=== PATIENT | female | born 1995 | race Caucasian/White ===

== ENCOUNTER 2016-11-06 13:29 | Outpatient (CLI) | payer MEDICAID ==
--- NOTE | 2016-11-06 14:00 | L&D Flow Sheet ---
LD Flowsheet Datetime Report Generated by CPN: 11/06/2016 14:00 Datetime: 11/06/2016 13:56 Pain Pain Scale: 0 (Nitza Girish, RN) Pain Presence: None/Denies (Nitza Girish, RN) Pain Type: N/A (Nitza Girish, RN) Vaginal Exam Vaginal Bleeding: None (Nitza Girish, RN) Maternal Assessment Level of Consciousness: Fully Conscious (Nitza Girish, RN) DTR's/Clonus: DTRs 2+; No Clonus (Nitza Girish, RN) Headache: Denies (Nitaz Girish, RN) Breath Sounds, Left: Clear and Equal (Nitza Girish, RN) Breath Sounds, Right: Clear and Equal (Nitza Girish, RN) Nausea/Vomiting: Denies (Nitza Girish, RN) RUQ Epigastric Pain: Denies (Nitza Girish, RN) Communication LaborFlag: OB Triage (QS system process) Datetime: 11/06/2016 13:55 Vital Signs Stage of : OB Triage (Nitza Girish, RN) Datetime: 11/06/2016 13:49 NBP Sys/Cheryl/Mean (mmHg): 114 (QS system process) : 61 (QS system process) : 81 (QS system process) Pulse: 91 (QS system process) Communication LaborFlag: Labor (QS system process)
[2016-11-06 14:29] LABS: APPEARANCE,URINE SLIGHTLY-CLOUDY; BILIRUBIN,URINE NEGATIVE (NEGATIVE); GLUCOSE, URINE NEGATIVE (NEGATIVE); KETONES,URINE NEGATIVE (NEGATIVE); LEUKOCYTE ESTERASE,URINE MODERATE (NEGATIVE); NITRITE,URINE NEGATIVE (NEGATIVE); PROTEIN,URINE NEGATIVE (NEGATIVE); URINE SPECIFIC GRAVITY 1.011; UROBILINOGEN,URINE NEGATIVE mg/dL (<2.0)
[2016-11-06 14:52] LABS: URINE BARBITURATES SCREEN NEGATIVE; URINE METHADONE SCREEN NEGATIVE; URINE OPIATES LOW NEGATIVE; URINE PHENCYCLIDINE SCREEN NEGATIVE
== END 2016-11-06 14:45 | disposition home or self-care (01) ==
LOC: LC 13:29
PROVIDERS: ATTEND Student in an Organized Health Care Education/Training Program
PROC: 4A1HXCZ Monitoring of Products of Conception, Cardiac Rate, External Approach (ICD-10-PCS; principal; 2016-11-06)
DX: O48.0 Post-term pregnancy (principal); Z3A.40 40 weeks gestation of pregnancy
CPT/HCPCS: 59025; 80307; 81005

== ENCOUNTER 2016-11-15 07:16 | Inpatient (IN) | payer MEDICAID ==
--- NOTE | 2016-11-15 08:00 | L&D Flow Sheet ---
LD Flowsheet Datetime Report Generated by CPN: 11/15/2016 08:00 Datetime: 11/15/2016 07:55 Vital Signs NBP Sys/Cheryl/Mean (mmHg): 120 (QS system process) : 81 (QS system process) : 90 (QS system process) Pulse: 115 (QS system process) Communication LaborFlag: OB Triage (QS system process)
[2016-11-15] MEDS ORDERED: RINGERS SOLUTION,LACTATED 1,000 ML IV ONE (08:18)
[2016-11-15] MEDS ORDERED: FENTANYL CITRATE INJ/PF 100 MCG/2 ML AMPUL ONE (09:23)
[2016-11-15] MEDS ORDERED: EPHEDRINE SULFATE INJ 50 MG/1 ML AMPULE ONE (09:23)
[2016-11-15] MEDS ORDERED: PHENYLEPHRINE HCL INJ/PF 10 MG/1 ML SDV ONE (09:23)
[2016-11-15] MEDS ORDERED: FENTANYL/BUPIVACAINE/NS/PF 200 MCG/100 ML RTUINJ EPI ONE (09:24)
[2016-11-15] MEDS ORDERED: BUPIVACAINE HCL 0.25 % INJ/PF (2.5 MG/1 ML) 30 ML VIAL ONE (09:24)
[2016-11-15 09:27] LABS: ABSOLUTE LYMPHOCYTES (AUTO) 1.5 10^3/uL (0.5-4.7); ABSOLUTE NEUT (AUTO) 10.8 10^3/uL (1.7-8.2); BASOPHILS % (AUTO) 0.2 % (0-2); HEMATOCRIT 37.5 % (36.0-47.0); HEMOGLOBIN 12.2 g/dL (12.0-15.5); HGB HCT DIFFERENCE -0.9; LYMPHOCYTES % (AUTO) 11.4 % (13-45); MEAN CORPUSCULAR HGB CONC 32.5 g/dL (32.0-36.0); MEAN CORPUSCULAR VOLUME 83 fl (80-97); MONOCYTES % (AUTO) 7.3 % (3-13); RED BLOOD COUNT 4.52 10^6/uL (3.72-5.28); RED CELL DISTRIBUTION WIDTH 16.6 % (11.5-14.0); SEGMENTED NEUTROPHILS % (AUTO) 81.1 % (42-78); WHITE BLOOD COUNT 13.4 10^3/uL (4.0-10.5)
--- NOTE | 2016-11-15 10:00 | L&D Flow Sheet ---
LD Flowsheet Datetime Report Generated by CPN: 11/15/2016 10:00 Datetime: 11/15/2016 09:59 NBP Sys/Cheryl/Mean (mmHg): 123 (QS system process) : 76 (QS system process) : 96 (QS system process) LaborFlag: OB Triage (QS system process) Datetime: 11/15/2016 09:58 Pulse: 111 (QS system process) SpO2 (%): 95 (QS system process) LaborFlag: OB Triage (QS system process) Datetime: 11/15/2016 09:55 Procedure Verify: Correct Patient Identity; Agreement on Procedure to be Done; Correct Patient Position; Addressed Need to Administer Antibiotics or Fluids for Irrigation (Macario Olivas RN) Epidural Positioning: Sitting (Macario Olivas, RN) Datetime: 11/15/2016 09:54 Patient Care Comments: Anesthesiologist in room to administer epidural. RN at bedside. (Macario Olivas, RN) Datetime: 11/15/2016 09:47 NBP Sys/Cheryl/Mean (mmHg): 137 (QS system process) : 82 (QS system process) : 100 (QS system process) Pulse: 90 (QS system process) LaborFlag: OB Triage (QS system process) Datetime: 11/15/2016 09:30 Monitor Mode: External (Macario Brendon, RN) Duration (sec): 1-2 (Macario Brendon, RN) Datetime: 11/15/2016 09:29 Duration (sec): 40-90 (Macario Olivas, RN) Monitor Mode: External US (Macario Brendon, RN) FHR Baseline Rate : 145 (Macario Brendon, RN) FHR Baseline Changes: No Baseline Change (Macario Brendon, RN) Variability: Moderate 6-25 bpm (Macario Brendon, RN) Accelerations: 15X15 (Macario Brendon, RN) Decelerations: None (Macario Brendon, RN) Datetime: 11/15/2016 08:59 Contraction Comments: Patient uncooperative, unable to assess (Macario Brendon, RN) Comments: RN at bedside adjusting monitor, FHR appears to be at 145 (Macario Brendon, RN) Datetime: 11/15/2016 08:29 Resting Tone (Palpate): Relaxed (Macario Brendon, RN) Contraction Comments: Patient uncooperative, unable to assess (Macario Brendon, RN) Monitor Mode: External US (Macario Brendon, RN) FHR Baseline Rate : 145 (Macario Brendon, RN) Variability: Moderate 6-25 bpm (Macario Brendon, RN) Accelerations: 15X15 (Macario Brendon, RN) Decelerations: None (Macario Brendon, RN) Datetime: 11/15/2016 08:20 Pain Scale: 5 (Macario Olivas RN) Pain Presence: Intermittent (Macario Olivas RN) Pain Type: Contraction (Macario Olivas RN) Pain Location: Abdomen (Annotations: [place] ) (Macario Olivas RN) Pain Goal: 1 (Macario Olivas RN) Pain Coping: Talking Through Contractions; Breathing Through Contractions (Macario Olivas RN) Membrane Status: Intact (Macario Olivas RN) Vaginal Bleeding: Scant (Macario Olivas RN) Level of Consciousness: Fully Conscious (Macario Olivas RN) Headache: Denies (Macario Olivas RN) Breath Sounds, Left: Clear and Equal (Macario Olivas RN) Breath Sounds, Right: Clear and Equal (Macario Olivas RN) Nausea/Vomiting: Hx of Nausea/Vomiting (Annotations: Vomiting began this morning) (Macario Olivas RN) RUQ Epigastric Pain: Denies (Macario Olivas RN) LaborFlag: OB Triage (QS system process) Datetime: 11/15/2016 08:12 IV/Blood Work: IV Started; IV Bolus Started (Macario Olivas RN) Patient Position/Activity: Left Tilt; Low Fowlers (Macario Olivas RN)
[2016-11-15 10:56] LABS: APPEARANCE,URINE CLOUDY; BILIRUBIN,URINE NEGATIVE (NEGATIVE); GLUCOSE, URINE NEGATIVE (NEGATIVE); KETONES,URINE 20 mg/dL (NEGATIVE); LEUKOCYTE ESTERASE,URINE LARGE (NEGATIVE); NITRITE,URINE NEGATIVE (NEGATIVE); PROTEIN,URINE NEGATIVE (NEGATIVE); URINE SPECIFIC GRAVITY 1.008; UROBILINOGEN,URINE NEGATIVE mg/dL (<2.0)
[2016-11-15 11:15] LABS: URINE BARBITURATES SCREEN NEGATIVE; URINE METHADONE SCREEN NEGATIVE; URINE OPIATES LOW NEGATIVE; URINE PHENCYCLIDINE SCREEN NEGATIVE
--- NOTE | 2016-11-15 12:00 | L&D Flow Sheet ---
LD Flowsheet Datetime Report Generated by CPN: 11/15/2016 12:00 Datetime: 11/15/2016 11:58 NBP Sys/Cheryl/Mean (mmHg): 106 (QS system process) : 55 (QS system process) : 72 (QS system process) Pulse: 114 (QS system process) LaborFlag: OB Triage (QS system process) Datetime: 11/15/2016 11:57 Patient Position/Activity: Left Lateral; Peanut Ball (Macario Olivas RN) Patient Care Comments: Patient switched from right to left side on peanut ball. (Macario Olivas, RN) Datetime: 11/15/2016 11:40 NBP Sys/Cheryl/Mean (mmHg): 129 (QS system process) : 75 (QS system process) : 95 (QS system process) Pulse: 112 (QS system process) Respirations: 16 (Erendira Bellavance, RNC) LaborFlag: OB Triage (QS system process) Datetime: 11/15/2016 11:30 Monitor Mode: External (Erendira Bellavance, RNC) Monitor Interventions for UA: [place] Adjusted (Erendira Bellavance, RNC) Frequency (min): 4-5 (Erendira Bellavance, RNC) Quality: Moderate (Erendira Bellavance, RNC) Duration (sec): 50-60 (Erendira Bellavance, RNC) Duration Criteria: Less than Two 120 Second Contractions (Erendira Bellavance, RNC) Pattern: Normal: <= 5 Contractions in 10 Minutes (Erendira Bellavance, RNC) Resting Tone (Palpate): Relaxed (Erendira Bellavance, RNC) Monitor Mode: External US (Erendira Bellavance, RNC) Monitor Interventions for FHR: Ultrasound Adjusted (Erendira Bellavance, RNC) FHR Baseline Rate : 145 (Erendira Bellavance, RNC) Variability: Moderate 6-25 bpm (Erendira Bellavance, RNC) Accelerations: 15X15 (Erendira Bellavance, RNC) Decelerations: Variable (Erendira Bellavance, RNC) Pain Scale: 0 (Erendira Bellavance, RNC) Level of Consciousness: Fully Conscious (Erendira Bellavance, RNC) IV/Blood Work: IV Infusing per Order (Erendira Bellavance, RNC) Patient Position/Activity: Peanut Ball; Right Extreme (Erendira Bellavance, RNC) Comfort Measures: Family Support (Erendira Bellavance, RNC) LaborFlag: OB Triage (QS system process) Datetime: 11/15/2016 11:24 NBP Sys/Cheryl/Mean (mmHg): 121 (QS system process) : 78 (QS system process) : 92 (QS system process) Pulse: 123 (QS system process) Respirations: 16 (Erendira Bellavance, RNC) LaborFlag: OB Triage (QS system process) Datetime: 11/15/2016 11:18 Pain Scale: 0 (Macario Olivas, RN) Pain Presence: None/Denies (Macario Olivas, RN) Pain Type: N/A (Macario Olivas, RN) Pain Goal: 0 (Macario Olivas, RN) Pain Relief Measures: Epidural Given (Macario Olivas, RN) LaborFlag: OB Triage (QS system process) Datetime: 11/15/2016 11:10 NBP Sys/Cheryl/Mean (mmHg): 130 (QS system process) : 81 (QS system process) : 98 (QS system process) Pulse: 116 (QS system process) Temperature (F): 98.0 (Macario Olivas, RN) Temperature (C): 36.7 (QS system process) Temperature Route: Oral (Macario Brendon, JULIETA) LaborFlag: OB Triage (QS system process) Datetime: 11/15/2016 11:06 Membrane Status: Ruptured (Macario Olivas RN) Membranes Rupture Method: Artificial (Macario Olivas RN) Amniotic Fluid Color: Clear (Macario Olivas RN) Amniotic Fluid Amount: Moderate (Macario Olivas RN) Amniotic Fluid Odor: Normal (Macario Olivas RN) Datetime: 11/15/2016 10:59 Dilatation (cm): 7.0 (Macario Olivas RN) Effacement (%): 100 (Macario Olivas RN) Station: -1 (Macario Olivas RN) Exam by: Macario Olivas RN (Macario Olivas RN) Cervix, Consistency: Soft (Macario Olivas RN) Cervix, Position: Anterior (Macario Olivas RN) Datetime: 11/15/2016 10:54 NBP Sys/Cheryl/Mean (mmHg): 116 (QS system process) : 77 (QS system process) : 90 (QS system process) Pulse: 117 (QS system process) LaborFlag: OB Triage (QS system process) Datetime: 11/15/2016 10:39 NBP Sys/Cheryl/Mean (mmHg): 128 (QS system process) : 79 (QS system process) : 99 (QS system process) Pulse: 126 (QS system process) LaborFlag: OB Triage (QS system process) Datetime: 11/15/2016 10:38 NBP Sys/Cheryl/Mean (mmHg): 127 (QS system process) : 73 (QS system process) : 92 (QS system process) Pulse: 130 (QS system process) LaborFlag: OB Triage (QS system process) Datetime: 11/15/2016 10:37 NBP Sys/Cheryl/Mean (mmHg): 131 (QS system process) : 71 (QS system process) : 96 (QS system process) Pulse: 129 (QS system process) LaborFlag: OB Triage (QS system process) Datetime: 11/15/2016 10:33 NBP Sys/Cheryl/Mean (mmHg): 153 (QS system process) : 94 (QS system process) : 116 (QS system process) Pulse: 125 (QS system process) LaborFlag: OB Triage (QS system process) Datetime: 11/15/2016 10:30 NBP Sys/Cheryl/Mean (mmHg): 119 (QS system process) : 69 (QS system process) : 89 (QS system process) Pulse: 112 (QS system process) Pulse: 105 (QS system process) SpO2 (%): 93 (QS system process) LaborFlag: OB Triage (QS system process) Datetime: 11/15/2016 10:29 NBP Sys/Cheryl/Mean (mmHg): 109 (QS system process) NBP Sys/Cheryl/Mean (mmHg): 101 (QS system process) : 65 (QS system process) : 58 (QS system process) : 80 (QS system process) : 69 (QS system process) Pulse: 100 (QS system process) Pulse: 106 (QS system process) Pulse: 93 (QS system process) SpO2 (%): 95 (QS system process) Monitor Mode: External; Palpation (Macario Olivas RN) Frequency (min): 2-3 (Macario Olivas RN) Quality: Mild (Macario Olivas RN) Duration (sec): 40-90 (Macario Olivas RN) Resting Tone (Palpate): Relaxed (Macario Olivas RN) Monitor Mode: External US (Macario Olivas RN) FHR Baseline Rate : 135 (Macario Olivas RN) Variability: Moderate 6-25 bpm (Macario Olivas RN) Decelerations: Late (Macario Olivas RN) Actions for Decelerations: Side to Side; IV Bolus; Blood Pressure; Other (Macario Olivas RN) Comments: Ephedrine Given (Macario Olivas RN) Medication Comments: Ephedrin given 5mg IV push (Macario Olivas RN) LaborFlag: OB Triage (QS system process) Datetime: 11/15/2016 10:27 NBP Sys/Cheryl/Mean (mmHg): 108 (QS system process) : 56 (QS system process) : 79 (QS system process) Pulse: 85 (QS system process) LaborFlag: OB Triage (QS system process) Datetime: 11/15/2016 10:26 NBP Sys/Cheryl/Mean (mmHg): 107 (QS system process) : 52 (QS system process) : 75 (QS system process) Pulse: 89 (QS system process) LaborFlag: OB Triage (QS system process) Datetime: 11/15/2016 10:25 NBP Sys/Cheryl/Mean (mmHg): 111 (QS system process) : 56 (QS system process) : 81 (QS system process) Pulse: 91 (QS system process) LaborFlag: OB Triage (QS system process) Datetime: 11/15/2016 10:24 NBP Sys/Cheryl/Mean (mmHg): 107 (QS system process) : 55 (QS system process) : 78 (QS system process) Pulse: 89 (QS system process) Pulse: 107 (QS system process) SpO2 (%): 99 (QS system process) LaborFlag: OB Triage (QS system process) Datetime: 11/15/2016 10:23 NBP Sys/Cheryl/Mean (mmHg): 110 (QS system process) : 56 (QS system process) : 78 (QS system process) Pulse: 98 (QS system process) LaborFlag: OB Triage (QS system process) Datetime: 11/15/2016 10:22 NBP Sys/Cheryl/Mean (mmHg): 109 (QS system process) : 57 (QS system process) : 79 (QS system process) Pulse: 87 (QS system process) LaborFlag: OB Triage (QS system process) Datetime: 11/15/2016 10:21 NBP Sys/Cheryl/Mean (mmHg): 108 (QS system process) : 64 (QS system process) : 81 (QS system process) Pulse: 100 (QS system process) LaborFlag: OB Triage (QS system process) Datetime: 11/15/2016 10:20 NBP Sys/Cheryl/Mean (mmHg): 106 (QS system process) : 62 (QS system process) : 80 (QS system process) Pulse: 81 (QS system process) LaborFlag: OB Triage (QS system process) Datetime: 11/15/2016 10:19 NBP Sys/Cheryl/Mean (mmHg): 102 (QS system process) : 59 (QS system process) : 77 (QS system process) Pulse: 93 (QS system process) Pulse: 96 (QS system process) SpO2 (%): 97 (QS system process) LaborFlag: OB Triage (QS system process) Datetime: 11/15/2016 10:18 NBP Sys/Cheryl/Mean (mmHg): 104 (QS system process) : 56 (QS system process) : 74 (QS system process) Pulse: 81 (QS system process) LaborFlag: OB Triage (QS system process) Datetime: 11/15/2016 10:17 NBP Sys/Cheryl/Mean (mmHg): 109 (QS system process) : 62 (QS system process) : 79 (QS system process) Pulse: 100 (QS system process) Pulse: 96 (QS system process) SpO2 (%): 94 (QS system process) LaborFlag: OB Triage (QS system process) Datetime: 11/15/2016 10:16 NBP Sys/Cheryl/Mean (mmHg): 117 (QS system process) : 59 (QS system process) : 83 (QS system process) Pulse: 85 (QS system process) LaborFlag: OB Triage (QS system process) Datetime: 11/15/2016 10:15 NBP Sys/Cheryl/Mean (mmHg): 123 (QS system process) : 59 (QS system process) : 79 (QS system process) Pulse: 104 (QS system process) LaborFlag: OB Triage (QS system process) Datetime: 11/15/2016 10:14 NBP Sys/Cheryl/Mean (mmHg): 108 (QS system process) : 56 (QS system process) : 78 (QS system process) Pulse: 106 (QS system process) Pulse: 99 (QS system process) SpO2 (%): 96 (QS system process) LaborFlag: OB Triage (QS system process) Datetime: 11/15/2016 10:13 NBP Sys/Cheryl/Mean (mmHg): 115 (QS system process) : 64 (QS system process) : 84 (QS system process) Pulse: 96 (QS system process) Anesthesia Plans: Epidural (Macario Olivas RN) Epidural Procedure Other: Pump Started (Macario Olivas RN) Anesthesia Comments: Patient laying down with RN at bedside (Macario Olivas RN) LaborFlag: OB Triage (QS system process) Datetime: 11/15/2016 10:12 NBP Sys/Cheryl/Mean (mmHg): 116 (QS system process) : 69 (QS system process) : 87 (QS system process) Pulse: 108 (QS system process) Pulse: 111 (QS system process) SpO2 (%): 92 (QS system process) I/O Interventions: Carl Cath Inserted (Macario Olivas RN) LaborFlag: OB Triage (QS system process) Datetime: 11/15/2016 10:09 NBP Sys/Cheryl/Mean (mmHg): 120 (QS system process) : 61 (QS system process) : 80 (QS system process) Pulse: 107 (QS system process) Pulse: 111 (QS system process) SpO2 (%): 98 (QS system process) LaborFlag: OB Triage (QS system process) Datetime: 11/15/2016 10:08 NBP Sys/Cheryl/Mean (mmHg): 121 (QS system process) : 75 (QS system process) : 90 (QS system process) Pulse: 104 (QS system process) LaborFlag: OB Triage (QS system process) Datetime: 11/15/2016 10:07 NBP Sys/Cheryl/Mean (mmHg): 126 (QS system process) : 73 (QS system process) : 95 (QS system process) Pulse: 100 (QS system process) Epidural Procedure: Loading Dose (Macario Olivas RN) LaborFlag: OB Triage (QS system process) Datetime: 11/15/2016 10:06 NBP Sys/Cheryl/Mean (mmHg): 124 (QS system process) : 83 (QS system process) : 95 (QS system process) Pulse: 113 (QS system process) Anesthesia Plans: Epidural (Macario Olivas RN) Epidural Procedure: Test Dose (Macario Olivas RN) LaborFlag: OB Triage (QS system process) Datetime: 11/15/2016 10:05 NBP Sys/Cheryl/Mean (mmHg): 129 (QS system process) : 81 (QS system process) : 96 (QS system process) Pulse: 123 (QS system process) LaborFlag: OB Triage (QS system process) Datetime: 11/15/2016 10:04 NBP Sys/Cheryl/Mean (mmHg): 126 (QS system process) : 93 (QS system process) : 106 (QS system process) Pulse: 118 (QS system process) SpO2 (%): 99 (QS system process) LaborFlag: OB Triage (QS system process) Datetime: 11/15/2016 10:03 NBP Sys/Cheryl/Mean (mmHg): 123 (QS system process) : 78 (QS system process) : 96 (QS system process) Pulse: 113 (QS system process) LaborFlag: OB Triage (QS system process) Datetime: 11/15/2016 10:02 NBP Sys/Cheryl/Mean (mmHg): 129 (QS system process) : 89 (QS system process) : 103 (QS system process) Pulse: 102 (QS system process) LaborFlag: OB Triage (QS system process) Datetime: 11/15/2016 10:01 NBP Sys/Cheryl/Mean (mmHg): 124 (QS system process) : 88 (QS system process) : 102 (QS system process) Pulse: 123 (QS system process) LaborFlag: OB Triage (QS system process) Datetime: 11/15/2016 10:00 NBP Sys/Cheryl/Mean (mmHg): 121 (QS system process) : 89 (QS system process) : 102 (QS system process) Pulse: 122 (QS system process) Monitor Mode: External US (Macario Olivas RN) FHR Baseline Rate : 140 (Macario Olivas RN) FHR Baseline Changes: No Baseline Change (Macario Olivas RN) Variability: Moderate 6-25 bpm (Macario Olivas RN) Accelerations: 15X15 (Macario Olivas RN) Decelerations: None (Macario Olivas RN) LaborFlag: OB Triage (QS system process)
[2016-11-15] MEDS ORDERED: OXYTOCIN/NORMAL SALINE 20 UNIT/1,000 ML RTUINJ ONE ×2 (12:52→16:44)
--- NOTE | 2016-11-15 14:00 | L&D Flow Sheet ---
LD Flowsheet Datetime Report Generated by CPN: 11/15/2016 14:00 Datetime: 11/15/2016 13:59 Pulse: 126 (QS system process) SpO2 (%): 97 (QS system process) LaborFlag: OB Triage (QS system process) Datetime: 11/15/2016 13:54 NBP Sys/Cheryl/Mean (mmHg): 128 (QS system process) : 80 (QS system process) : 99 (QS system process) Pulse: 130 (QS system process) Pulse: 127 (QS system process) SpO2 (%): 97 (QS system process) LaborFlag: OB Triage (QS system process) Datetime: 11/15/2016 13:52 Pitocin (milliunit): Pitocin Increased to (milliunits) @ 8 ([facility], RN) Datetime: 11/15/2016 13:49 Pulse: 127 (QS system process) SpO2 (%): 97 (QS system process) LaborFlag: OB Triage (QS system process) Datetime: 11/15/2016 13:45 FHR Baseline Rate : 145 (Macario Brendon, RN) Variability: Moderate 6-25 bpm (Macario Brendon, RN) Accelerations: 15X15 (Macario Brendon, RN) Decelerations: None (Macario Brendon, RN) Datetime: 11/15/2016 13:44 Pulse: 131 (QS system process) SpO2 (%): 97 (QS system process) LaborFlag: OB Triage (QS system process) Datetime: 11/15/2016 13:40 Patient Position/Activity: Left Lateral (Macario Brendon, RN) Datetime: 11/15/2016 13:39 NBP Sys/Cheryl/Mean (mmHg): 124 (QS system process) : 84 (QS system process) : 98 (QS system process) Pulse: 136 (QS system process) SpO2 (%): 96 (QS system process) LaborFlag: OB Triage (QS system process) Datetime: 11/15/2016 13:33 Pulse: 141 (QS system process) SpO2 (%): 98 (QS system process) Pitocin (milliunit): Pitocin Increased to (milliunits) @ 6 (Macario Olivas RN) LaborFlag: OB Triage (QS system process) Datetime: 11/15/2016 13:29 Monitor Mode: External (Macario Olivas RN) Frequency (min): 3 (Macario Olivas RN) Quality: Mild (Macario Olivas RN) Duration (sec): 90-110 (Macario Olivas RN) Monitor Mode: External US (Macario Olivas RN) FHR Baseline Rate : 145 (Macario Oroscoford, RN) Variability: Moderate 6-25 bpm (Macario Brendon, RN) Accelerations: 15X15 (Macario Brendon, RN) Decelerations: None (Macario Olivas, RN) Datetime: 11/15/2016 13:28 Pulse: 150 (QS system process) SpO2 (%): 98 (QS system process) LaborFlag: OB Triage (QS system process) Datetime: 11/15/2016 13:26 NBP Sys/[place]yrl/Mean (mmHg): 119 (QS system process) : 80 (QS system process) : 94 (QS system process) Pulse: 148 (QS system process) LaborFlag: OB Triage (QS system process) Datetime: 11/15/2016 13:24 Patient Care Comments: 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 notified of patinets pulse rate being elavated (Macario Brendon, RN) Datetime: 11/15/2016 13:23 Pulse: 147 (QS system process) SpO2 (%): 99 (QS system process) LaborFlag: OB Triage (QS system process) Datetime: 11/15/2016 13:18 Pulse: 132 (QS system process) SpO2 (%): 99 (QS system process) LaborFlag: OB Triage (QS system process) Datetime: 11/15/2016 13:15 Temperature (F): 98.5 (Macario Olivas, RN) Temperature (C): 36.9 (QS system process) Temperature Route: Oral (Macario Olivas, RN) LaborFlag: OB Triage (QS system process) Datetime: 11/15/2016 13:14 Monitor Mode: External (Macario Olivas, RN) Frequency (min): 1-4 (Macario Olivas, RN) Quality: Mild (Macario Olivas, RN) Duration (sec): 40-100 (Macario Olivas, RN) Resting Tone (Palpate): Relaxed (Macario Olivas, RN) Monitor Mode: External US (Macario Olivas, RN) FHR Baseline Rate : 150 (Macario Olivas, RN) Variability: Moderate 6-25 bpm (Macario Brendon, RN) Accelerations: 15X15 (Macario Brendon, RN) Decelerations: None (Macario Brendon, RN) Pitocin (milliunit): Pitocin Increased to (milliunits) @ 4 (Macario Brendon, RN) Datetime: 11/15/2016 13:09 NBP Sys/Cheryl/Mean (mmHg): 110 (QS system process) : 81 (QS system process) : 92 (QS system process) Pulse: 157 (QS system process) LaborFlag: OB Triage (QS system process) Datetime: 11/15/2016 13:00 Frequency (min): 4-7 (Macario Brendon, RN) Duration (sec): 80-120 (Macario Brendon, RN) Monitor Mode: External US (Macario Olivas, RN) FHR Baseline Rate : 150 (Macario Brendon, RN) Variability: Moderate 6-25 bpm (Macario Brendon, RN) Accelerations: None (Macario Brendon, RN) Decelerations: None (Macario Brendon, RN) Datetime: 11/15/2016 12:57 Pitocin (milliunit): Pitocin Started (milliunits) @ 2 (Macario Olivas, RN) Datetime: 11/15/2016 12:54 NBP Sys/Cheryl/Mean (mmHg): 120 (QS system process) : 86 (QS system process) : 99 (QS system process) Pulse: 136 (QS system process) LaborFlag: OB Triage (QS system process) Datetime: 11/15/2016 12:45 Monitor Mode: External (Macario Olivas, RN) Frequency (min): x1 (Macario Olivas, RN) Duration (sec): 70 (Macario Brendon, RN) Monitor Mode: External US (Macario Olivas, RN) FHR Baseline Rate : 150 (Macario Olivas, RN) Variability: Moderate 6-25 bpm (Macario Olivas, RN) Decelerations: None (Macario Brendon, RN) Datetime: 11/15/2016 12:44 Dilatation (cm): 7.0 (Macario Olivas RN) Effacement (%): 90 (Macario Olivas RN) Station: 0 (Macario Olivas RN) Exam by: Macario Olivas RN (Macario Olivas RN) Vaginal Bleeding: None (Macario Olivas RN) Cervix, Position: Anterior (Macario Olivas RN) Lie 'A': Longitudinal (Macario Olivas RN) Patient Position/Activity: High Fowlers (Macario Olivas RN) I/O Interventions: Clear Liquids Given (Macario Olivas RN) Datetime: 11/15/2016 12:39 Patient Position/Activity: Right Lateral; Peanut Ball (Macario Olivas RN) Datetime: 11/15/2016 12:29 Monitor Mode: External (Macario Brendon, RN) Frequency (min): 4-6 (Macario Brendon, RN) Duration (sec): 70-110 (Macario Brendon, RN) Monitor Mode: External US (Macario Brendon, RN) FHR Baseline Rate : 150 (Macario Brendon, RN) Variability: Moderate 6-25 bpm (Macario Brendon, RN) Decelerations: None (Macario Brendon, RN) Datetime: 11/15/2016 12:14 Frequency (min): 2-4 (Macario Brendon, RN) Duration (sec): 70-140 (Macario Brendon, RN) Datetime: 11/15/2016 12:11 NBP Sys/Cheryl/Mean (mmHg): 104 (QS system process) : 58 (QS system process) : 73 (QS system process) Pulse: 109 (QS system process) LaborFlag: OB Triage (QS system process)
--- NOTE | 2016-11-15 16:00 | L&D Flow Sheet ---
LD Flowsheet Datetime Report Generated by CPN: 11/15/2016 16:00 Datetime: 11/15/2016 15:56 NBP Sys/Cheryl/Mean (mmHg): 143 (QS system process) : 91 (QS system process) : 109 (QS system process) Pulse: 125 (QS system process) LaborFlag: OB Triage (QS system process) Datetime: 11/15/2016 15:48 NBP Sys/Cheryl/Mean (mmHg): 132 (QS system process) : 88 (QS system process) : 105 (QS system process) Pulse: 126 (QS system process) LaborFlag: OB Triage (QS system process) Datetime: 11/15/2016 15:40 NBP Sys/Cheryl/Mean (mmHg): 140 (QS system process) : 87 (QS system process) : 107 (QS system process) Pulse: 136 (QS system process) Pulse: 130 (QS system process) SpO2 (%): 99 (QS system process) LaborFlag: OB Triage (QS system process) Datetime: 11/15/2016 15:35 Pulse: 129 (QS system process) SpO2 (%): 99 (QS system process) LaborFlag: OB Triage (QS system process) Datetime: 11/15/2016 15:30 Pulse: 132 (QS system process) SpO2 (%): 98 (QS system process) Pitocin (milliunit): Pitocin Increased to (milliunits) @ 10 (Macario Olivas RN) LaborFlag: OB Triage (QS system process) Datetime: 11/15/2016 15:25 Pulse: 130 (QS system process) SpO2 (%): 97 (QS system process) LaborFlag: OB Triage (QS system process) Datetime: 11/15/2016 15:24 NBP Sys/Cheryl/Mean (mmHg): 133 (QS system process) : 73 (QS system process) : 98 (QS system process) Pulse: 134 (QS system process) LaborFlag: OB Triage (QS system process) Datetime: 11/15/2016 15:23 Pulse: 136 (QS system process) SpO2 (%): 91 (QS system process) LaborFlag: OB Triage (QS system process) Datetime: 11/15/2016 15:20 Pulse: 131 (QS system process) SpO2 (%): 99 (QS system process) LaborFlag: OB Triage (QS system process) Datetime: 11/15/2016 15:15 Pulse: 136 (QS system process) SpO2 (%): 98 (QS system process) LaborFlag: OB Triage (QS system process) Datetime: 11/15/2016 15:13 Frequency (min): 2-3 (Macario Olivas, RN) Monitor Mode: External US (Macario Olivas, RN) FHR Baseline Rate : 150 (Macario Olivas, RN) Variability: Minimal - Undetectable to <=5 bpm (Macario Olivas, RN) Accelerations: None (Macario Olivas, RN) Decelerations: None (Macario Brendon, RN) Datetime: 11/15/2016 15:10 NBP Sys/Cheryl/Mean (mmHg): 138 (QS system process) : 79 (QS system process) : 100 (QS system process) Pulse: 133 (QS system process) SpO2 (%): 99 (QS system process) LaborFlag: OB Triage (QS system process) Datetime: 11/15/2016 14:59 Pulse: 133 (QS system process) SpO2 (%): 98 (QS system process) Frequency (min): 1-4 (Macario Brendon, RN) Duration (sec): 60-100 (Macario Brendon, RN) Monitor Mode: External US (Macario Olivas, RN) FHR Baseline Rate : 145 (Macario Brendon, RN) Variability: Marked >25 bpm (Macario Brendon, RN) Accelerations: 15X15 (Macario Brendon, RN) LaborFlag: OB Triage (QS system process) Datetime: 11/15/2016 14:55 NBP Sys/Cheryl/Mean (mmHg): 117 (QS system process) : 62 (QS system process) : 86 (QS system process) Pulse: 134 (QS system process) LaborFlag: OB Triage (QS system process) Datetime: 11/15/2016 14:54 Pulse: 136 (QS system process) SpO2 (%): 97 (QS system process) LaborFlag: OB Triage (QS system process) Datetime: 11/15/2016 14:51 Dilatation (cm): 8.0 (Macario Olivas RN) Effacement (%): 100 (Macario Olivas RN) Station: 0 (Macario Olivas RN) Exam by: Macario Olivas RN (Macario Olivas RN) Vaginal Bleeding: Normal Show (Macario Olivas RN) Cervix, Consistency: Soft (Macario Olivas RN) Cervix, Position: Anterior (Macario Olivas RN) IV/Blood Work: New IV Bag Hung (Macario Olivas RN) Patient Care Comments: 125 mL/hr (Macario Olivas RN) Datetime: 11/15/2016 14:49 Pulse: 128 (QS system process) SpO2 (%): 98 (QS system process) LaborFlag: OB Triage (QS system process) Datetime: 11/15/2016 14:44 Pulse: 132 (QS system process) SpO2 (%): 97 (QS system process) Monitor Mode: External (Macario Olivas, RN) Frequency (min): 2-4 (Macario Olivas, RN) Quality: Mild (Macario Olivas, RN) Duration (sec): 60-80 (Macario Olivas, RN) Monitor Mode: External US (Macario Olivas, RN) FHR Baseline Rate : 150 (Macario Olivas, RN) Variability: Moderate 6-25 bpm (Macario Olivas, RN) Accelerations: 15X15 (Macario Olivas, RN) Decelerations: None (Macario Olivas, RN) LaborFlag: OB Triage (QS system process) Datetime: 11/15/2016 14:40 NBP Sys/Cheryl/Mean (mmHg): 131 (QS system process) : 79 (QS system process) : 97 (QS system process) Pulse: 133 (QS system process) LaborFlag: OB Triage (QS system process) Datetime: 11/15/2016 14:39 Pulse: 133 (QS system process) SpO2 (%): 98 (QS system process) LaborFlag: OB Triage (QS system process) Datetime: 11/15/2016 14:34 Pulse: 134 (QS system process) SpO2 (%): 97 (QS system process) LaborFlag: OB Triage (QS system process) Datetime: 11/15/2016 14:29 Pulse: 132 (QS system process) SpO2 (%): 98 (QS system process) Monitor Mode: External (Macario Olivas RN) Frequency (min): 1-4 (Macario Olivas RN) Quality: Mild (Macario Olivas RN) Duration (sec): 50-100 (Macario Brendon, RN) Monitor Mode: External US (Macario Olivas, RN) FHR Baseline Rate : 150 (Macario Olivas, RN) Variability: Moderate 6-25 bpm (Macario Olivas, RN) Accelerations: 15X15 (Macario Olivas, RN) Decelerations: None (Macario Olivas, RN) LaborFlag: OB Triage (QS system process) Datetime: 11/15/2016 14:24 NBP Sys/Cheryl/Mean (mmHg): 117 (QS system process) : 74 (QS system process) : 92 (QS system process) Pulse: 133 (QS system process) Pulse: 130 (QS system process) SpO2 (%): 98 (QS system process) LaborFlag: OB Triage (QS system process) Datetime: 11/15/2016 14:19 Pulse: 127 (QS system process) SpO2 (%): 98 (QS system process) LaborFlag: OB Triage (QS system process) Datetime: 11/15/2016 14:14 Pulse: 127 (QS system process) SpO2 (%): 100 (QS system process) Monitor Mode: External (Macario Brendon, RN) Frequency (min): 2-3 (Macario Brendon, RN) Duration (sec): 60-100 (Macario Brendon, RN) Monitor Mode: External US (Macario Brendon, RN) FHR Baseline Rate : 150 (Macario Brendon, RN) Variability: Moderate 6-25 bpm (Macario Brendon, RN) Accelerations: 15X15 (Macario Brendon, RN) Decelerations: None (Macario Brendon, RN) LaborFlag: OB Triage (QS system process) Datetime: 11/15/2016 14:10 NBP Sys/Cheryl/Mean (mmHg): 128 (QS system process) : 88 (QS system process) : 103 (QS system process) Pulse: 142 (QS system process) LaborFlag: OB Triage (QS system process) Datetime: 11/15/2016 14:09 Pulse: 126 (QS system process) SpO2 (%): 98 (QS system process) LaborFlag: OB Triage (QS system process) Datetime: 11/15/2016 14:04 Pulse: 131 (QS system process) SpO2 (%): 98 (QS system process) LaborFlag: OB Triage (QS system process)
[2016-11-15] MEDS ORDERED: LIDOCAINE 1% INJ-PF (10 MG/ML) 30 ML SDV ONE (16:43)
[2016-11-15] MEDS ORDERED: MISOPROSTOL 0.2 MG TABLET ONE (16:43)
--- NOTE | 2016-11-15 18:00 | L&D Flow Sheet ---
LD Flowsheet Datetime Report Generated by CPN: 11/15/2016 18:00 Datetime: 11/15/2016 17:55 NBP Sys/Cheryl/Mean (mmHg): 114 (QS system process) : 77 (QS system process) : 91 (QS system process) LaborFlag: OB Triage (QS system process) Datetime: 11/15/2016 17:40 NBP Sys/Cheryl/Mean (mmHg): 132 (QS system process) : 91 (QS system process) : 107 (QS system process) Pulse: 139 (QS system process) LaborFlag: OB Triage (QS system process) Datetime: 11/15/2016 17:25 NBP Sys/Cheryl/Mean (mmHg): 134 (QS system process) : 61 (QS system process) : 89 (QS system process) Pulse: 136 (QS system process) LaborFlag: OB Triage (QS system process) Datetime: 11/15/2016 17:00 Temperature (F): 98.7 (Macario Olivas RN) Temperature (C): 37.1 (QS system process) Temperature Route: Axillary (Macario Olivas RN) LaborFlag: OB Triage (QS system process) Datetime: 11/15/2016 16:59 NBP Sys/Cheryl/Mean (mmHg): 120 (QS system process) : 64 (QS system process) : 83 (QS system process) Pulse: 141 (QS system process) LaborFlag: OB Triage (QS system process) Datetime: 11/15/2016 16:56 NBP Sys/Cheryl/Mean (mmHg): 172 (QS system process) : 99 (QS system process) : 115 (QS system process) Pulse: 141 (QS system process) LaborFlag: OB Triage (QS system process) Datetime: 11/15/2016 16:40 NBP Sys/Cheryl/Mean (mmHg): 132 (QS system process) : 83 (QS system process) : 104 (QS system process) Pulse: 127 (QS system process) LaborFlag: OB Triage (QS system process) Datetime: 11/15/2016 16:36 Dilatation (cm): 9.0 (Macario Olivas, RN) Effacement (%): 100 (Macario Olivas, RN) Station: 0 (Macario Olivas RN) Exam by: Erendira Santoro RN (Macario Olivas RN) Datetime: 11/15/2016 16:24 NBP Sys/Cheryl/Mean (mmHg): 131 (QS system process) : 85 (QS system process) : 102 (QS system process) Pulse: 131 (QS system process) LaborFlag: OB Triage (QS system process) Datetime: 11/15/2016 16:15 Monitor Mode: External (Macario Brendon, RN) Frequency (min): 2-4 (Macario Brendon, RN) Duration (sec): 50-100 (Macario Brendon, RN) Monitor Mode: External US (Macario Brendon, RN) FHR Baseline Rate : 155 (Macario Brendon, RN) Variability: Moderate 6-25 bpm (Macario Brendon, RN) Accelerations: None (Macario Brendon, RN) Decelerations: None (Macario Brendon, RN) Datetime: 11/15/2016 16:11 NBP Sys/Cheryl/Mean (mmHg): 135 (QS system process) : 90 (QS system process) : 108 (QS system process) Pulse: 127 (QS system process) LaborFlag: OB Triage (QS system process) Datetime: 11/15/2016 16:00 Monitor Mode: External (Macario Brendon, RN) Frequency (min): 2-3 (Macario Brendon, RN) Duration (sec): 60-120 (Macario Brendon, RN)
[2016-11-15] MEDS ORDERED: OXYTOCIN/NORMAL SALINE 1,000 ML IV PRN (18:09)
[2016-11-15] MEDS ORDERED: PROMETHAZINE HCL 25 MG SUPP.RECT PR PRN (18:09)
[2016-11-15] MEDS ORDERED: MAGNESIUM HYDROXIDE SUSP 30 ML UDCUP PO PRN (18:09)
[2016-11-15] MEDS ORDERED: ZOLPIDEM TARTRATE 5 MG TABLET PO PRN (18:09)
[2016-11-15] MEDS ORDERED: DIPHENHYDRAMINE HCL 25 MG CAPSULE PO PRN (18:09)
[2016-11-15] MEDS ORDERED: ACETAMINOPHEN WITH CODEINE #3 TABLET PO PRN ×2 (18:09)
[2016-11-15] MEDS ORDERED: PROMETHAZINE HCL INJ 25 MG/1 ML VIAL IV PRN (18:09)
[2016-11-15] MEDS ORDERED: PSEUDOEPHEDRINE HCL 30 MG TABLET PO PRN (18:09)
[2016-11-15] MEDS ORDERED: MEASLES,MUMPS&RUBELLA VACC/PF 0.5 ML VIAL SUBCUT PRN (18:09)
[2016-11-15] MEDS ORDERED: PROMETHAZINE HCL 25 MG TABLET PO PRN (18:09)
[2016-11-15] MEDS ORDERED: BENZOCAINE/MENTHOL AEROSOL SPRAY 56 ML TOP PRN (18:09)
[2016-11-15] MEDS ORDERED: GLYCERIN/WITCH HAZEL LEAF 1 EACH MED..PAD TP PRN (18:09)
[2016-11-15] MEDS ORDERED: ACETAMINOPHEN 650 MG SUPP.RECT PR PRN (18:09)
[2016-11-15] MEDS ORDERED: DIPH/PERTUSS(ACELL)/TETANUS VAC/PF 0.5 ML SYR (>=10YO) IM PRN (18:09)
[2016-11-15] MEDS ORDERED: NA PHOS,M-B/NA PHOS,DI-BA (ADULT) 133 ML ENEMA PR PRN (18:09)
[2016-11-15] MEDS ORDERED: DIBUCAINE 1% OINTMENT 28 GM TP PRN (18:09)
[2016-11-15] MEDS: RINGERS SOLUTION,LACTATED 1,000 ML IV PRN ×2 (19:13→19:16)
--- NOTE | 2016-11-15 19:31 | Delivery Summary ---
Del Sum A-C Datetime Report Generated by CPN: 11/15/2016 19:31 ADMISSION DATA Chief Complaint: Uterine Contractions Indication for Induction: Not Applicable Admission Impression: Active Labor Admit Provider Comments: pt wants epidural, states labor started at 5-6 am DELIVERY PERSONNEL Delivery Doctor:: Daylin Roberts MD Anesthesiologist:: Kym Muñoz MD Labor and Delivery Nurse:: Macario Olivas RNmill oiler Nurse:: SIMRAN Robertson Director Of Physiotherapy Services/MANAGER FINE: Emilie Brown, MANAGER FINE II MATERNAL INFORMATION Delivery Anesthesia: Epidural Medications After Delivery: Pitocin Drip 20 Units/1000ml NSS Estimated Blood Loss (ml): 250 Maternal Complications: None LABOR SUMMARY EDC: 11/09/2016 00:00 No. Babies in Womb: 1 Attempted: No Labor Anesthesia: Epidural LABOR INFORMATION Reason for Induction: Not Applicable Onset of Labor: 11/15/2016 12:00 Complete Dilatation: 11/15/2016 17:15 Oxytocin: Augmentation Group B Beta Strep: neg Antibiotics # of Doses: 0 Steroids Given: None Reason Steroids Not Administered: Not Applicable MEMBRANES Membranes Rupture Method: Artificial Amniotic Fluid Color: Clear Amniotic Fluid Amount: Moderate Amniotic Fluid Odor: Normal STAGES OF LABOR Stage 1 hr: 5 Stage 1 min: 15 Stage 2 hr: 0 Stage 2 min: 45 Stage 3 hr: 0 Stage 3 min: 4 Total Time in Labor hr: 6 Total Time in Labor min: 4 VAGINAL DELIVERY Episiotomy: None Laceration Extension: N/A Laceration Type: None Sponge Count Correct: N/A BABY A INFORMATION Infant Delivery Date/Time: 11/15/2016 18:00 Method of Delivery: Vaginal Born in Route : No : N/A Forceps: N/A Vacuum Extraction: N/A Shoulder Dystocia : No PRESENTATION/POSITION BABY A Presentation: Cephalic Cephalic Presentation: Vertex Vertex Position: Left Occipital Anterior Breech Presentation: N/A PLACENTA INFORMATION BABY A Placenta Delivery Time : 11/15/2016 18:04 Placenta Method of Delivery: Spontaneous Placenta Status: Delivered SCORES BABY A Heart Rate 1 min: >100 bpm Resp Effort 1 min: Good Cry Reflex Irritability 1 min: Cough or Sneeze or Pulls Away Muscle Tone 1 min: Active Motion Color 1 min: Body Petal, Extremities Blue SCORE 1 MIN: 9 Heart Rate 5 min: >100 bpm Resp Effort 5 min: Good Cry Reflex Irritability 5 min: Cough or Sneeze or Pulls Away Muscle Tone 5 min: Active Motion Color 5 min: Body Petal, Extremities Blue Resuscitation Effort 5 min: N/A SCORE 5 MIN: 9 INFORMATION BABY A Gestational Age at Delivery: 40.6 Gestational Status: Full Term- 39- 40.6 Weeks Infant Outcome : Liveborn Infant Condition : Stable Sex: Male IDENTIFICATION BABY A Infant Verification Date/Time: 11/15/2016 18:29 ID Band Number: [id number] Mother's Name Verified: Yes Infant RN Verifying : Roberto, RN Additional Verifying Personnel: DArabella Daijajenny WEIGHT/LENGTH BABY A Infant Birthweight (gm): 4600 Weight (lb): 10 Weight (oz): 2 Infant Length (in): 20.00 Length (cm): 50.80 CORD INFORMATION BABY A No. Cord Vessels: 3 Nuchal Cord : N/A Cord Blood Taken: Yes-For Eval (Mom's Blood Type - or O+) Suction: Mouth; Nose ASSESSMENT BABY A Skin to Skin: Yes Skin to Skin Time (min): 20 SIGNATURES Signature: with User ID: Claudia : I was personally available for consultation and serving as supervising physician for the MLP.
--- NOTE | 2016-11-15 20:00 | L&D Flow Sheet ---
LD Flowsheet Datetime Report Generated by CPN: 11/15/2016 20:00 Datetime: 11/15/2016 19:58 NBP Sys/Cheryl/Mean (mmHg): 133 (QS system process) : 79 (QS system process) : 101 (QS system process) Datetime: 11/15/2016 19:43 NBP Sys/Cheryl/Mean (mmHg): 140 (QS system process) : 75 (QS system process) : 100 (QS system process) Pulse: 125 (QS system process) Datetime: 11/15/2016 19:30 Level of Consciousness: Fully Conscious (Promise Souza, RN) DTR's/Clonus: DTRs 2+; No Clonus (Promise Souza, RN) Headache: Denies (Promise Souza, RN) Breath Sounds, Left: Clear and Equal (Promise Souza, RN) Breath Sounds, Right: Clear and Equal (Promise Souza, RN) Nausea/Vomiting: Denies (Promise Britoello, RN) RUQ Epigastric Pain: Denies (Promise Meghannichiello, RN) Datetime: 11/15/2016 19:28 NBP Sys/Cheryl/Mean (mmHg): 150 (QS system process) : 75 (QS system process) : 106 (QS system process) Pulse: 125 (QS system process) Datetime: 11/15/2016 19:13 NBP Sys/Cheryl/Mean (mmHg): 152 (QS system process) : 70 (QS system process) : 105 (QS system process) Pulse: 123 (QS system process) Datetime: 11/15/2016 18:58 NBP Sys/Cheryl/Mean (mmHg): 139 (QS system process) : 84 (QS system process) : 105 (QS system process) Pulse: 129 (QS system process) Datetime: 11/15/2016 18:10 Stage of : Recovery (Macario Olivas, RN) Respirations: 16 (Macario Olivas, RN) Datetime: 11/15/2016 18:04 Stage of : Recovery (Macario Olivas, RN) Datetime: 11/15/2016 18:01 Patient Care Comments: PT delivered at 1800 (Macario Olivas RN)
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
[2016-11-15] MEDS: FAMOTIDINE 20 MG TABLET PO SCH (22:04)
[2016-11-15] MEDS: IBUPROFEN 800 MG TABLET PO SCH (22:04)
[2016-11-16] MEDS: IBUPROFEN 800 MG TABLET PO SCH ×3 (05:54→21:44)
--- NOTE | 2016-11-16 07:00 | L&D Flow Sheet ---
LD Flowsheet Datetime Report Generated by CPN: 11/16/2016 07:00 Datetime: 11/15/2016 20:00 Stage of : Recovery (Promise Errichiello, RN) Pain Scale: 0 (Promise Errichiello, RN) Pain Presence: None/Denies (Promise Errichiello, RN) Pain Type: N/A (Promise Errichiello, RN) Datetime: 11/15/2016 19:58 NBP Sys/Cheryl/Mean (mmHg): 133 (QS system process) : 79 (QS system process) : 101 (QS system process) Datetime: 11/15/2016 19:45 Stage of : Recovery (Promise Souza RN) Pain Scale: 0 (Promise Souza RN) Pain Presence: None/Denies (Promise Souza RN) Pain Type: N/A (Promise Souza RN) Datetime: 11/15/2016 19:43 NBP Sys/Cheryl/Mean (mmHg): 140 (QS system process) : 75 (QS system process) : 100 (QS system process) Pulse: 125 (QS system process) Datetime: 11/15/2016 19:30 Stage of : Recovery (Promise Souza RN) Temperature (F): 98.2 (Promise Souza RN) Temperature (C): 36.8 (QS system process) Pain Scale: 0 (Promise Souza RN) Pain Presence: None/Denies (Promise Souza RN) Pain Type: N/A (Promise Souza RN) Level of Consciousness: Fully Conscious (Promise Souza RN) DTR's/Clonus: DTRs 2+; No Clonus (Promise Souza RN) Headache: Denies (Promise Souza RN) Breath Sounds, Left: Clear and Equal (Promise Souza RN) Breath Sounds, Right: Clear and Equal (Promise Souza RN) Nausea/Vomiting: Denies (Promise Souza RN) RUQ Epigastric Pain: Denies (Promise Souza RN) Datetime: 11/15/2016 19:28 NBP Sys/Cheryl/Mean (mmHg): 150 (QS system process) : 75 (QS system process) : 106 (QS system process) Pulse: 125 (QS system process) Datetime: 11/15/2016 19:15 Stage of : Recovery (Promise Souza RN) Respirations: 16 (Promise Souza RN) Temperature Route: Oral (Promise Souza RN) Pain Scale: 0 (Promise Souza RN) Pain Presence: None/Denies (Promise Souza RN) Pain Type: N/A (Promise Souza RN) Datetime: 11/15/2016 19:13 NBP Sys/Cheryl/Mean (mmHg): 152 (QS system process) : 70 (QS system process) : 105 (QS system process) Pulse: 123 (QS system process)
--- NOTE | 2016-11-16 08:40 | PDOC PROGRESS REPORT ---
Subjective-OB Subjective: Post Delivery Day: 21 year old. Denies any needs at this time Physical Exam (OB) Vital Signs: Temp Pulse Resp BP Pulse Ox 98.2 F 109 H 18 122/78 99 11/16/16 03:34 11/16/16 03:34 11/16/16 03:34 11/16/16 03:34 11/16/16 03:34 Intake & Output 11/15/16 11/16/16 11/17/16 06:59 06:59 06:59 Output Total 250 Balance -250 Weight 92.079 kg - Lochia Lochia Amount: Scant < 10 ml Lochia Color: Rubra/Red - Abdomen Description: Soft, Round Hernia Present: No Bowel Sounds: Normoactive Flatus Presence: Present Stool: No Fundal Description: Firm, Midline Fundal Height: u/u - u/2 Objective-Diagnostic Laboratory: 11/15/16 09:08 11/15/16 11/15/16 11/15/16 09:08 09:08 10:21 WBC 13.4 H RBC 4.52 Hgb 12.2 Hct 37.5 MCV 83 MCH 27.0 MCHC 32.5 RDW 16.6 H Plt Count 195 Seg Neutrophils % 81.1 H Lymphocytes % 11.4 L Monocytes % 7.3 Eosinophils % 0.0 Basophils % 0.2 Absolute Neutrophils 10.8 H Absolute Lymphocytes 1.5 Absolute Monocytes 1.0 Absolute Eosinophils 0.0 Absolute Basophils 0.0 Urine Color YELLOW Urine Appearance CLOUDY Urine pH 8.0 Ur Specific [place] 1.008 Urine Protein NEGATIVE Urine Glucose (UA) NEGATIVE Urine Ketones 20 H Urine Blood MODERATE H Urine Nitrite NEGATIVE Ur Leukocyte Esterase LARGE H Blood Type O POSITIVE Antibody Screen NEGATIVE
[2016-11-16 08:51] LABS: HEMATOCRIT 31.2 % (36.0-47.0); HEMOGLOBIN 10.2 g/dL (12.0-15.5); HGB HCT DIFFERENCE -0.6; MEAN CORPUSCULAR HEMOGLOBIN 27.4 pg (27.0-33.4); MEAN CORPUSCULAR HGB CONC 32.6 g/dL (32.0-36.0); MEAN CORPUSCULAR VOLUME 84 fl (80-97); RED BLOOD COUNT 3.72 10^6/uL (3.72-5.28); RED CELL DISTRIBUTION WIDTH 16.9 % (11.5-14.0); WHITE BLOOD COUNT 20.6 10^3/uL (4.0-10.5)
[2016-11-16] MEDS: FERROUS SULFATE 325 MG TABLET PO SCH ×2 (11:23→18:55)
[2016-11-16] MEDS: SENNOSIDES/DOCUSATE 8.6-50 MG 1 EACH TABLET PO SCH (11:24)
[2016-11-16] MEDS: PRENATAL VITAMIN W-O CA NO5/FE FUMARATE/FA CAPSULE PO SCH (11:24)
[2016-11-16] MEDS: DOCUSATE SODIUM 100 MG CAPSULE PO SCH ×2 (11:24→18:55)
[2016-11-16] MEDS: FAMOTIDINE 20 MG TABLET PO SCH ×2 (11:25→21:44)
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
--- NOTE | 2016-11-16 18:15 | L&D Care Plan ---
LD CARE PLANS Datetime Report Generated by CPN: 11/16/2016 18:15 Datetime: 11/15/2016 08:23 Pain State: Actual ([place], RNC) Related To: Labor and Delivery Process; Treatment and Procedures; Post ([place], RNC) Goal(s): Patients Pain will be Assessed and Managed; Patient will Verbalize Adequate Relief of Pain or the Ability to [place] with Current Pain ([place], RNC) Interventions: Assess Pain Severity on Scale of 0 (None) to 5 (Severe); Assess Type, Location and Intensity of Pain Each Time Client Reports Discomfort and Notify Provider if Unusal Pain Develops; Encourage Proper Breathing and Relaxation Techniques; Offer Alternatives Such as Repositioning, Calm Environment, Massages, Diversional Activities, Ice Pack, Splinting, and Ambulation; Administer Analgesics as Ordered; Assist with Epidural Placement as Appropriate; Evaluate Therapeutic Effectiveness of Medication and Treatments ([place], SIMRAN) Outcome: Patient will Report Absence or Relief of Pain Consistent with Established Pain Goal (SIMRAN Robertson) Status: Ongoing (SIMRAN Robertson) Outcome: Patient will have a Decrease in Signs and Symptoms of Discomfort (Ling [place], RNC) Status: Ongoing (SIMRAN Robertson) Outcome: Pain will be Controlled During Procedures (SIMRAN Robertson) Status: Ongoing (SIMRAN Robertson) Anxiety State: Risk For ([place]ing [place], SIMRAN) Related To: Labor and Delivery Process; Fear of Unknown; Situational Crisis; Medical Interventions; Significant Life Event (SIMRAN Robertson) Goal(s): Patient will have Decreased Anxiety and be able to Function at Acceptable Levels (Ling [place]gui, SIMRAN) Interventions: Assess Verbal and Nonverbal Behavioral Indicators of Anxiety; Assist Patient to Identify and Verbalize Symptoms of Anxiety; Identify and Demonstrate Techniques to Control Anxiety; Assist Patient with Coping Mechanisms to Manage Anxiety; Provide Theraputic Touch for the Patient; Explain to Patient, Using a Calm Reassuring Approach and Nonmedical Terms, All Activities, Procedures, and Concerns; Instruct Patient and Family about Post Discharge Care, Limitations, Symptoms to Report and Resources Available (Ling Jauregui, SIMRAN) Outcome: Patient will Identify, Verbalize and Demonstrate Techniques to Control Anxiety (SIMRAN Robertson) Status: Ongoing ([place], [facility]) Outcome: Patient's Posture, Facial Expressions, Gestures and Activity Level will Reflect Decreased Anxiety (SIMRAN Robertson) Status: Ongoing (Ling Jauregui, RN) Outcome: Patient will Verbalize a Sense of Control and/or Acceptance of the Situation (Ling [place], RNC) Status: Ongoing (Ling [place]uregui, RN) Outcome: Patient will Identify and Utilize Support Person (Ling Jauregui RN) Status: Ongoing (Ling Jauregui [facility]) Knowledge Deficit State: Actual (SIMRAN Robertson) Related To: Labor and Delivery Process; Treatment and Procedures; Feeding and Care; Community Resources and Available Support Mechanisms (SIMRAN Robertson) Goal(s): Patient will Accurately Verbalize Understanding of Plan of Care and Treatment; Patient and Family will Accurately Verbalize Understanding of the Disease Process (SIMRAN Robertson) Interventions: Assess Motivation and Willingness of Patient/Family to Learn; Assess Preferred Learning Mode: One to One Instruction, Reading, Videos, Group Discussion or Demonstration; Assess Barriers to Learning: Pain, Emotional State, Language Barrier, Cognitive Impairment, Visual or Hearing Deficits; Assess Patient and Family Knowledge of Disease Process, Medications and Treatment; Discuss Therapy and/or Treatment Options, Describe Rationale Behind Management, Therapy and Treatment Recommendations; Instruct Patient and Family on Signs and Symptoms to Report; Instruct Patient and Family on Medication Effects and Side Effects; Provide Appropriate and Timely Education Using Multiple Techniques; Provide Patient and Family with Support Group Information and Resources; Give Clear and Thorough Explanations and Demonstrations (SIMRAN Robertson) Outcome: Patient and Family will Verbalize Understanding of Condition, Treatment and Signs and Symptoms to Report (SIMRAN Robertson) Status: Ongoing (SIMRAN Robertson) Outcome: Patient will Identify Perceived Learning Needs and Express Motivation to Learn ([place], C) [facility] Outcome: Patient will Verbalize Understanding of Desired Content, and/or Performs Desired Skill Prior to Discharge ([place], RNC) Status: Ongoing ([facility], [facility]) Infection State: Risk For (Ling Jauregui, [facility]) Related To: Invasive Procedures (Ling [place], [facility]) Goal(s): The Patient will be Free of Infection, Vital Signs Stable and Lab Work within Normal Parameters ([place], [facility]) Interventions: Instruct and Reinforce Proper Handwashing, Hygiene, and Care Techniques to Patient and Family; Monitor Vital Signs; Monitor Patient for the Following Signs of Infection: Fever, Abdominal Tenderness, Unusual Discharge; Monitor Aminiotic Fluid, Urine and Lochia for Color and Odor; Observe Wounds, Incisions and Invasive Line Sites for Redness, Drainage and Edema; Assess IV Sites per Hospital Policy; Monitor Lab and Test Results and Notify Provider of Abnormal Findings; Assess Nutritional Status and Promote Good Nutrition (Ling [place], [facility]) Outcome: Patient will Remain Free of Infection (Ling [place], RN) Status: [facility]ing [facility]) Outcome: Infection will be Recognized Early to Allow for Prompt Treatment (Ling [place], RN) Status: [facility]ngoing [facility]) Outcome: Patient will have Vital Signs Within Expected Range ([facility], RNC) Status: Ongoing ([facility], C) Injury State: Risk For ([facility], [facility]) Related To: Labor and Delivery Process ([facility], C) Goal(s): Patient will Remain Free from Injury ([facility], RNC) Interventions: Monitoring as per Hospital Protocol; Assess Neurological Status; Perform Risk Assessment of Patients with Induction and ; Perform Fall Risk Assessment and Prevention per Hospital Protocol; Perform DVT Risk Assessment and Prophylaxis per Hospital Protocol; Ensure that Oxygen, Suction, and Resuscitation Medications and Equipment are Readily Available; Confirm Patient ID Prior to Procedure(s) and Medication Administration per Hospital Policy ([facility], RNC) Outcome: Successful Fall Risk Prevention ([place]ing [place], RNC) Status: Ongoing ([place]ing [place], RNC) Outcome: Patient will Deliver Infant without Adverse Sequela ([place], RNC) Status: Ongoing ([place], RNC) Outcome: Patient's Neurological Status will Remain Stable ([place], RNC) Status: Ongoing ([place], RNC) Nutrition State: Actual ([facility], RNC) Related To: ([facility], C) Goal(s): Patient will have an Intake of Nutrients Sufficient to Meet Metabolic Needs ([place], RNC) Interventions: Nutritional Screening and Assessment per Hospital Policy; Consult [place] Winder for Further Assessment and Recommendations Regarding Food Preferences and Nutritional Support; Allow Patient to Plan and Order Diet when Possible; Monitor Laboratory Values That Indicate Nutritional Well-being; Consult Bank Officer for Nutritional Support Regarding Requirements; Document Actual Weight Initially and Weekly (Do Not Estimate); Encourage Patient Participation in Maintaining a Food Log as Indicated; Educate Patient on the Importance of Maintaining an Adequate Caloric Intake (Ling Jauregui, SIMRAN) Outcome: Patient will Receive Adequate Calories and Fluid Volume to Meet Metabolic Needs (SIMRAN Robertson) Status: Ongoing (SIMRAN Robertson) Outcome: Patient will Select Foods or Meals that Support Adequate Nutrition (SIMRAN Robertson) Status: Ongoing (SIMRAN Robertson)
[2016-11-17] MEDS: IBUPROFEN 800 MG TABLET PO SCH ×2 (05:56→13:23)
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
--- NOTE | 2016-11-17 06:15 | L&D Care Plan ---
LD CARE PLANS Datetime Report Generated by CPN: 11/17/2016 06:15 Datetime: 11/15/2016 08:23 Pain State: Actual ([place], RNC) Related To: Labor and Delivery Process; Treatment and Procedures; Post ([place], RNC) Goal(s): Patients Pain will be Assessed and Managed; Patient will Verbalize Adequate Relief of Pain or the Ability to [place] with Current Pain ([place], RNC) Interventions: Assess Pain Severity on Scale of 0 (None) to 5 (Severe); Assess Type, Location and Intensity of Pain Each Time Client Reports Discomfort and Notify Provider if Unusal Pain Develops; Encourage Proper Breathing and Relaxation Techniques; Offer Alternatives Such as Repositioning, Calm Environment, Massages, Diversional Activities, Ice Pack, Splinting, and Ambulation; Administer Analgesics as Ordered; Assist with Epidural Placement as Appropriate; Evaluate Therapeutic Effectiveness of Medication and Treatments ([place], SIMRAN) Outcome: Patient will Report Absence or Relief of Pain Consistent with Established Pain Goal (SIMRAN Robertson) Status: Ongoing (SIMRAN Robertson) Outcome: Patient will have a Decrease in Signs and Symptoms of Discomfort ([place], RNC) Status: Ongoing (SIMRAN Robertson) Outcome: Pain will be Controlled During Procedures (SIMRAN Robertson) Status: Ongoing (SIMRAN Robertson) Anxiety State: Risk For ([place], SIMRAN) Related To: Labor and Delivery Process; Fear of Unknown; Situational Crisis; Medical Interventions; Significant Life Event (SIMRAN Robertson) Goal(s): Patient will have Decreased Anxiety and be able to Function at Acceptable Levels ([place], SIMRAN) Interventions: Assess Verbal and Nonverbal Behavioral Indicators of Anxiety; Assist Patient to Identify and Verbalize Symptoms of Anxiety; Identify and Demonstrate Techniques to Control Anxiety; Assist Patient with Coping Mechanisms to Manage Anxiety; Provide Theraputic Touch for the Patient; Explain to Patient, Using a Calm Reassuring Approach and Nonmedical Terms, All Activities, Procedures, and Concerns; Instruct Patient and Family about Post Discharge Care, Limitations, Symptoms to Report and Resources Available ([place], SIMRAN) Outcome: Patient will Identify, Verbalize and Demonstrate Techniques to Control Anxiety (SIMRAN Robertson) Status: Ongoing ([place], [facility]) Outcome: Patient's Posture, Facial Expressions, Gestures and Activity Level will Reflect Decreased Anxiety (SIMRAN Robertson) Status: Ongoing ([place], RN) Outcome: Patient will Verbalize a Sense of Control and/or Acceptance of the Situation ([place], RNC) Status: Ongoing ([place], RN) Outcome: Patient will Identify and Utilize Support Person (Ling Jauregui RN) Status: Ongoing ([place]ing [place]gui [facility]) Knowledge Deficit State: Actual (SIMRAN Robertson) Related To: Labor and Delivery Process; Treatment and Procedures; Feeding and Care; Community Resources and Available Support Mechanisms (SIMRAN Robertson) Goal(s): Patient will Accurately Verbalize Understanding of Plan of Care and Treatment; Patient and Family will Accurately Verbalize Understanding of the Disease Process (SIMRAN Robertson) Interventions: Assess Motivation and Willingness of Patient/Family to Learn; Assess Preferred Learning Mode: One to One Instruction, Reading, Videos, Group Discussion or Demonstration; Assess Barriers to Learning: Pain, Emotional State, Language Barrier, Cognitive Impairment, Visual or Hearing Deficits; Assess Patient and Family Knowledge of Disease Process, Medications and Treatment; Discuss Therapy and/or Treatment Options, Describe Rationale Behind Management, Therapy and Treatment Recommendations; Instruct Patient and Family on Signs and Symptoms to Report; Instruct Patient and Family on Medication Effects and Side Effects; Provide Appropriate and Timely Education Using Multiple Techniques; Provide Patient and Family with Support Group Information and Resources; Give Clear and Thorough Explanations and Demonstrations (SIMRAN Robertson) Outcome: Patient and Family will Verbalize Understanding of Condition, Treatment and Signs and Symptoms to Report (SIMRAN Robertson) Status: Ongoing (SIMRAN Robertson) Outcome: Patient will Identify Perceived Learning Needs and Express Motivation to Learn ([place], C) [facility]: [facility] Outcome: Patient will Verbalize Understanding of Desired Content, and/or Performs Desired Skill Prior to Discharge ([place], RNC) Status: Ongoing ([facility], [facility]) Infection State: Risk For ([place], [facility]) Related To: Invasive Procedures ([place], [facility]) Goal(s): The Patient will be Free of Infection, Vital Signs Stable and Lab Work within Normal Parameters ([place], [facility]) Interventions: Instruct and Reinforce Proper Handwashing, Hygiene, and Care Techniques to Patient and Family; Monitor Vital Signs; Monitor Patient for the Following Signs of Infection: Fever, Abdominal Tenderness, Unusual Discharge; Monitor Aminiotic Fluid, Urine and Lochia for Color and Odor; Observe Wounds, Incisions and Invasive Line Sites for Redness, Drainage and Edema; Assess IV Sites per Hospital Policy; Monitor Lab and Test Results and Notify Provider of Abnormal Findings; Assess Nutritional Status and Promote Good Nutrition ([place], [facility]) Outcome: Patient will Remain Free of Infection ([place], RN) [facility]: [facility]ing [facility]) Outcome: Infection will be Recognized Early to Allow for Prompt Treatment ([place], RN) Status: [facility]ngoing ([facility]) Outcome: Patient will have Vital Signs Within Expected Range ([facility], RNC) Status: Ongoing ([facility], C) Injury State: Risk For ([facility], [facility]) Related To: Labor and Delivery Process ([facility], C) Goal(s): Patient will Remain Free from Injury ([facility], RNC) Interventions: Monitoring as per Hospital Protocol; Assess Neurological Status; Perform Risk Assessment of Patients with Induction and ; Perform Fall Risk Assessment and Prevention per Hospital Protocol; Perform DVT Risk Assessment and Prophylaxis per Hospital Protocol; Ensure that Oxygen, Suction, and Resuscitation Medications and Equipment are Readily Available; Confirm Patient ID Prior to Procedure(s) and Medication Administration per Hospital Policy ([facility], RNC) Outcome: Successful Fall Risk Prevention ([place], RNC) Status: Ongoing ([place], RNC) Outcome: Patient will Deliver Infant without Adverse Sequela ([place], RNC) Status: Ongoing ([place], RNC) Outcome: Patient's Neurological Status will Remain Stable ([place], RNC) Status: Ongoing ([place], RNC) Nutrition State: Actual ([facility], RNC) Related To: ([facility], C) Goal(s): Patient will have an Intake of Nutrients Sufficient to Meet Metabolic Needs ([place], RNC) Interventions: Nutritional Screening and Assessment per Hospital Policy; Consult Horse Show Judge for Further Assessment and Recommendations Regarding Food Preferences and Nutritional Support; Allow Patient to Plan and Order Diet when Possible; Monitor Laboratory Values That Indicate Nutritional Well-being; Consult Podiatric Medicine Doctor for Nutritional Support Regarding Requirements; Document Actual Weight Initially and Weekly (Do Not Estimate); Encourage Patient Participation in Maintaining a Food Log as Indicated; Educate Patient on the Importance of Maintaining an Adequate Caloric Intake ([place], SIMRAN) Outcome: Patient will Receive Adequate Calories and Fluid Volume to Meet Metabolic Needs (SIMRAN Robertson) Status: Ongoing (SIMRAN Robertson) Outcome: Patient will Select Foods or Meals that Support Adequate Nutrition (SIMRAN Robertson) Status: Ongoing (SIMRAN Robertson)
[2016-11-17 08:36] VITALS: BP 120/83
[2016-11-17 08:45] LABS: ABSOLUTE EOSINOPHILS # (AUTO) 0.2 10^3/uL (0.0-0.6); ABSOLUTE LYMPHOCYTES (AUTO) 3.3 10^3/uL (0.5-4.7); ABSOLUTE NEUT (AUTO) 11.6 10^3/uL (1.7-8.2); BASOPHILS % (AUTO) 0.2 % (0-2); EOSINOPHILS % (AUTO) 1.1 % (0-6); HEMATOCRIT 28.3 % (36.0-47.0); HEMOGLOBIN 9.3 g/dL (12.0-15.5); HGB HCT DIFFERENCE -0.4; LYMPHOCYTES % (AUTO) 20.3 % (13-45); MEAN CORPUSCULAR HEMOGLOBIN 27.7 pg (27.0-33.4); MEAN CORPUSCULAR HGB CONC 32.7 g/dL (32.0-36.0); MEAN CORPUSCULAR VOLUME 85 fl (80-97); MONOCYTES % (AUTO) 6.3 % (3-13); RED BLOOD COUNT 3.35 10^6/uL (3.72-5.28); RED CELL DISTRIBUTION WIDTH 16.9 % (11.5-14.0); SEGMENTED NEUTROPHILS % (AUTO) 72.1 % (42-78)
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
[2016-11-17] MEDS: SENNOSIDES/DOCUSATE 8.6-50 MG 1 EACH TABLET PO SCH (10:53)
[2016-11-17] MEDS: DOCUSATE SODIUM 100 MG CAPSULE PO SCH (10:53)
[2016-11-17] MEDS: FERROUS SULFATE 325 MG TABLET PO SCH (10:53)
[2016-11-17] MEDS: PRENATAL VITAMIN W-O CA NO5/FE FUMARATE/FA CAPSULE PO SCH (10:53)
[2016-11-17] MEDS: FAMOTIDINE 20 MG TABLET PO SCH (10:54)
== END 2016-11-17 13:36 | disposition home or self-care (01) | DRG 775 ==
LOC: LC 07:16 → LR 08:27 → 2S 20:28
PROVIDERS: ADMIT Obstetrics & Gynecology; ATTEND Obstetrics & Gynecology
PROC: 10E0XZZ Delivery of Products of Conception, External Approach (ICD-10-PCS; principal; 2016-11-15)
PROC: 4A1HXCZ Monitoring of Products of Conception, Cardiac Rate, External Approach (ICD-10-PCS; 2016-11-15)
DX: O9A.42 Sexual abuse complicating childbirth (principal); D62 Acute posthemorrhagic anemia; O99.02 Anemia complicating childbirth; Z3A.40 40 weeks gestation of pregnancy; Z37.0 Single live birth; Z62.810 Personal history of physical and sexual abuse in childhood
CPT/HCPCS: 36415; 80307; 81005; 85025; 85027; 86592; 86850; 86900; 86901; 94760; J2370; J2590; J3010; J3490